=== PATIENT | male | born 1970 | race Asian ===

== ENCOUNTER 2024-01-28 12:59 | Outpatient (CLI) | payer OTHER, SELFPAY | END 2024-01-28 13:00 | disposition home or self-care (01) | PROVIDERS: PCP Emergency Medicine; Visit Provider Emergency Medicine | DX: Z00.00 Encounter for general adult medical examination without abnormal findings (principal); I10 Essential (primary) hypertension; Z12.5 Encounter for screening for malignant neoplasm of prostate | CPT/HCPCS: 80048; G0103 ==

== ENCOUNTER 2024-02-04 08:56 | Outpatient (CLI) | payer OTHER, SELFPAY | END 2024-02-04 08:57 | disposition home or self-care (01) | LOC: NFLDREF 02-06 09:47 | PROVIDERS: PCP Emergency Medicine; Referring Provider Emergency Medicine; Visit Provider Emergency Medicine | DX: Z13.6 Encounter for screening for cardiovascular disorders (principal) | CPT/HCPCS: 80061 ==

== ENCOUNTER 2024-03-01 19:30 | Outpatient (CLI) | payer OTHER, SELFPAY ==
--- NOTE | 2024-03-24 09:53 | W.PM.SLEEP ---
Sleep Study Details Details Interpreting Provider: Debbie Date of Sleep Study: 03/01/24 Sleep Study Details: STUDY TYPE:? Home unattended ? BMI:? 23.5 ORDERING PROVIDER:? Debbie INDICATION:? Concerns about sleep apnea ? SLEEP SUMMARY:? Monitor time 414 minutes RESPIRATORY SUMMARY:? AHI 36, supine 63.7, right lateral 11.3 Low oxygen 74 9.7% of study oxygen less than 90% Snoring 15.8% PERIODIC LIMB MOVEMENTS OF SLEEP:? Not recorded CARDIAC:? Range 46-104, mean 59 beats per minute IMPRESSION:? Severe obstructive sleep apnea RECOMMENDATION: Treatment options include in-lab titration versus AutoSet CPAP.
== END 2024-03-01 19:31 | disposition home or self-care (01) ==
LOC: SLEEP 19:31
PROVIDERS: PCP Emergency Medicine; Visit Provider Otolaryngology
DX: G47.33 Obstructive sleep apnea (adult) (pediatric) (principal)
CPT/HCPCS: 95806